=== PATIENT | female | born 1990 | race Hispanic/Latino ===

== ENCOUNTER 2018-06-25 11:17 | Emergency (ER) | payer BC, MEDICAID, OTHER ==
[2018-06-25 11:19] VITALS: BMI 18.8
[2018-06-25 11:35] VITALS: O2SAT 99
--- NOTE | 2018-06-25 12:07 | C.PDOC ---
History Of Present Illness 27 y/o female, who is 7 weeks () and has no medical problems, comes in to ED stating that shes been vomiting every hour for the past 2 days and complains of generalized weakness for the past 2 weeks. States last episode of vomiting was one hour prior to arrival. She also reports she has some chills and abdominal cramping but no dysuria or other urinary symptoms. Patient notes she does not have an OB anymore and has a new customer success manager in which she has an appointment with on 07/03/18. Hasnt had her care yet. Time Seen by Provider: 06/25/18 11:53 Chief Complaint (Nursing): GI Problem History Per: Patient History/Exam Limitations: no limitations Onset/Duration Of Symptoms: Days Current Symptoms Are (Timing): Still Present Past Medical History Reviewed: Historical Data, Nursing Documentation, Vital Signs Vital Signs: Last Vital Signs Temp 98.2 F 06/25/18 11:31 Pulse 98 H 06/25/18 11:31 Resp 18 06/25/18 11:31 BP 99/66 L 06/25/18 11:31 Pulse Ox 99 06/25/18 11:31 - Medical History PMH: Migraine Denies: Depression - [facility] Procedures INJECT/INFUSE NEC (11/19/12) NEBULIZER THERAPY (03/25/14) Family History: States: Unknown Family Hx Denies: Diabetes - Social History Hx Tobacco Use: No Hx Alcohol Use: No Hx Substance Use: No - Immunization History Hx Tetanus Toxoid Vaccination: No Hx Influenza Vaccination: No Hx Pneumococcal Vaccination: No Review Of Systems Except As Marked, All Systems Reviewed And Found Negative. Constitutional: Positive for: Chills, Weakness. Negative for: Fever Cardiovascular: Negative for: Chest Pain Respiratory: Negative for: Cough, Shortness of Breath Gastrointestinal: Positive for: Vomiting, Other (Abdominal cramping) Genitourinary: Negative for: Dysuria Skin: Negative for: Rash Physical Exam - Physical Exam Appears: Non-toxic, No Acute Distress Skin: Warm, Dry, No Rash, No Jaundice Head: Atraumatic, Normacephalic Eye(s): bilateral: Normal Inspection, PERRL, EOMI Oral Mucosa: Moist Neck: Supple Chest: Symmetrical Cardiovascular: Rhythm Regular, No Murmur Respiratory: Normal Breath Sounds, No Rales, No Rhonchi, No Wheezing Gastrointestinal/Abdominal: Soft, No Tenderness Back: No CVA Tenderness Extremity: Bilateral: Atraumatic, Normal Color And Temperature, Normal ROM Neurological/Psych: Oriented x3, Normal Speech ED Course And Treatment - Laboratory Results Result Diagrams: 06/25/18 12:34 06/25/18 12:34 O2 Sat by Pulse Oximetry: 99 (RA) Pulse Ox Interpretation: Normal - CT Scan/US Obstetrics US Other Rad Studies (CT/US): Read By Radiologist, Radiology Report Reviewed CT/US Interpretation: FINDINGS: UTERUS: Gestational sac: Single live intrauterine gestation identified. Heart rate: 130 bpm. Gestational sac diameter 23 mm equivalent to 6 weeks 6 days. [place]-rump length 10 mm equivalent to 7 weeks 0 days. Composite gestational age by ultrasound is 7 weeks 0 days. [place]-gestational hemorrhage: None. Date of delivery (Ultrasound estimated) : 02/11/2019. 3 mm yolk sac visualized. Uterus measures 10.3 x 6.8 x 8.1 cm. Normal in size and appearance. CERVIX: Measures 3.9 cm. Long and closed. No cervical abnormality seen. RIGHT OVARY: Measures 3.5 x 2.9 x 3.7 cm. Normal flow. Corpus luteum cyst with characteristic peripheral hypervascularity, 1.7 cm diameter. LEFT OVARY: Measures 2.8 x 1.2 x 2.6 cm. No solid mass. Normal flow. FREE FLUID: Minimal. OTHER FINDINGS: None. IMPRESSION: Single live intrauterine gestation of approximately 7 weeks 0 days. No subchorionic hemorrhage. heart rate 130. Right ovarian corpus luteum. Medical Decision Making Medical Decision Making: Plan: --Bloodwork --IV fluids 1L --Zofran 4 mg IV --Obstetrics US --UA 15:44 -- Patient complains her throat hurts after waking up. Will give more IV fluids. 16:05 -- Patient tolerated tylenol PO without vomiting. 17:45 -- Fluids done. Patient will be discharged home. Disposition Counseled Patient/Family Regarding: Studies Performed, Diagnosis, Need For Followup - Disposition Disposition: HOME/ ROUTINE Disposition Time: 17:58 Condition: IMPROVED Additional Instructions: SOPHY ARAGON, thank you for letting us take care of you today. Your provider was Jeanie Jack MD and you were treated for 7 WKS /VOMITTING. The emergency medical care you received today was directed at your acute symptoms. If you were prescribed any medication, please fill it and take as directed. It may take several days for your symptoms to resolve. Return to the Emergency Department if your symptoms worsen, do not improve, or if you have any other problems. Please go to your doctor's appointment on July 03, 2018 as previously scheduled. Bring any paperwork you were given at discharge with you along with any medications you are taking to your follow up visit. Our treatment cannot replace ongoing medical care by a primary care provider outside of the emergency department. Thank you for allowing the [facility] team to be part of your care today. If you had an X-Ray or CT scan: A Radiologist will review the ED reading if any change in treatment is needed we will contact you. If you had a blood, urine, or wound culture: It will take several days for the results, if any change in treatment is needed we will contact you. If you had an STI test: It will take 48 hours for the results. Please call after 1 week if you have not heard back. SOPHY ARAGON, thank you for letting us take care of you today. Your provider was Jeanie Jack MD and you were treated for 7 WKS /VOMITTING. The emergency medical care you received today was directed at your acute symptoms. If you were prescribed any medication, please fill it and take as directed. It may take several days for your symptoms to resolve. Return to the Emergency Department if your symptoms worsen, do not improve, or if you have any other problems. Prescriptions: Ondansetron ODT [Zofran ODT] 4 mg PO TID PRN #15 odt PRN Reason: Nausea/Vomiting Instructions: Sore Throat, Adult (DC), Nausea and Vomiting of (DC), Stomach Pain in Early Forms: [employer] ([employer]) [employer] ([place]), General Discharge Instructions - POA Present On Arrival: None - Clinical Impression Clinical Impression: Vomiting, Nausea, Abdominal pain during , Pharyngitis - Scribe Statement The provider has reviewed the documentation as recorded by the Julia Booker Provider Attestation: All medical record entries made by the Julia were at my direction and personally dictated by me. I have reviewed the chart and agree that the record accurately reflects my personal performance of the history, physical exam, medical decision making, and the department course for this patient. I have also personally directed, reviewed, and agree with the discharge instructions and disposition.
[2018-06-25] MEDS ORDERED: Sodium Chloride 0.9% 1,000 ML IV ONE ×2 (12:14→15:53)
[2018-06-25 12:46] LABS: BASO # 0.1 K/uL (0.0-0.2); BASO % 0.4 % (0.0-2.0); EOS % 0.2 % (0.0-4.0); HEMOGLOBIN 12.1 g/dL (11.0-16.0); LYMPH # 1.6 K/uL (1.0-4.3); LYMPH % 8.9 % (20.0-40.0); MEAN CELL VOLUME 89.5 fL (81.0-99.0); MEAN CORPUSCULAR HEMOGLOBIN 30.5 pg (27.0-31.0); MEAN PLATELET VOLUME 7.2 fL (7.2-11.7); MONO # 1.1 K/uL (0.0-0.8); MONO % 6.4 % (0.0-10.0); NEUT % 84.1 % (50.0-75.0); PLATELET COUNT 319 K/uL (130-400); RBC 3.96 Mil/uL (3.80-5.20); RED CELL DISTRIBUTION WIDTH 13.1 % (11.5-14.5)
[2018-06-25 12:51] LABS: WHITE BLOOD COUNT 17.8 K/uL (4.8-10.8)
[2018-06-25 12:53] LABS: SQUAMOUS EPITHIAL 5 /hpf (0-5); URINE BACTERIA RARE (<OCC); URINE BILIRUBIN NEGATIVE (NEGATIVE); URINE BLOOD NEGATIVE (NEGATIVE); URINE CLARITY Clear (Clear); URINE COLOR Yellow (YELLOW); URINE GLUCOSE (UA) NORMAL (Normal); URINE LEUKOCYTE ESTERASE NEG Leu/uL (Negative); URINE PROTEIN 1+ mg/dL (NEGATIVE); URINE UROBILINOGEN NORMAL mg/dL (0.2-1.0)
[2018-06-25 12:59] LABS: ALB/GLOB RATIO 1.5 (1.0-2.1); ALBUMIN 4.2 g/dL (3.5-5.0); ALT/SGPT 12 U/L (9-52); AST/SGOT 20 U/L (14-36); BLOOD UREA NITROGEN 9 mg/dL (7-17); CALCIUM 9.2 mg/dl (8.6-10.4); GFR NON-AFRICAN AMERICAN > 60
[2018-06-25 13:17] LABS: BASOPHIL 1 % (0-2); EOSINOPHIL 1 % (0-4); LYMPHOCYTE 7 % (20-40); MONOCYTE 6 % (0-10); NEUTROPHIL 85 % (50-75); PLATELET ESTIMATE NORMAL (NORMAL); TOTAL CELLS COUNTED 100
--- NOTE | 2018-06-25 16:23 | US ---
Date of service: 06/25/2018 PROCEDURE: OB Pelvic Ultrasound HISTORY: preg/abd pain LMP: COMPARISON: None available. FINDINGS: UTERUS: Gestational sac: Single live intrauterine gestation identified. Heart rate: 130 bpm. Gestational sac diameter 23 mm equivalent to 6 weeks 6 days. [place]-rump length 10 mm equivalent to 7 weeks 0 days. Composite gestational age by ultrasound is 7 weeks 0 days. [place]-gestational hemorrhage: None. Date of delivery (Ultrasound estimated) : 02/11/2019 3 mm yolk sac visualized. Uterus measures 10.3 x 6.8 x 8.1 cm. Normal in size and appearance. CERVIX: Measures 3.9 cm. Long and closed. No cervical abnormality seen. RIGHT OVARY: Measures 3.5 x 2.9 x 3.7 cm. Normal flow. Corpus luteum cyst with characteristic peripheral hypervascularity, 1.7 cm diameter. LEFT OVARY: Measures 2.8 x 1.2 x 2.6 cm. No solid mass. Normal flow. FREE FLUID: Minimal OTHER FINDINGS: None. IMPRESSION: Single live intrauterine gestation of approximately 7 weeks 0 days. No subchorionic hemorrhage. heart rate 130. Right ovarian corpus luteum.
[2018-06-25 16:47] VITALS: RESP 17
[2018-06-25 18:23] VITALS: BP 93/53; PULSE 95; TEMP 99
== END 2018-06-25 18:22 | disposition home or self-care (01) ==
LOC: C.ER 11:17
DX: O21.9 Vomiting of pregnancy, unspecified (principal); O26.891 Other specified pregnancy related conditions, first trimester; R10.9 Unspecified abdominal pain; J02.9 Acute pharyngitis, unspecified; Z3A.01 Less than 8 weeks gestation of pregnancy
CPT/HCPCS: 76805; 76817; 80053; 81001; 81025; 84702; 85025; 87070; 87086; 87430; 96361; 96374; 99285; J2405; J7030